=== PATIENT | male | born 1960 | race Caucasian/White ===

== ENCOUNTER 2018-03-18 11:16 | Day surgery (SDC) | payer OTHER ==
[2018-03-18] MEDS ORDERED: PROPOFOL 20 ML (12:31)
[2018-03-18] MEDS ORDERED: LIDOCAINE 2% (SDV) 5 ML INJ ×2 (12:32→13:05)
[2018-03-18] MEDS ORDERED: CEFAZOLIN 1 GM INJ (12:32)
[2018-03-18] MEDS ORDERED: ROPIVACAINE 0.5 % 30 ML VIAL (12:48)
[2018-03-18] MEDS ORDERED: BUPIVACAINE 0.5% (SDV) 30 ML INJ (12:52)
[2018-03-18] MEDS ORDERED: BUPIVACAINE 0.25% (MPF) 30 ML INJ (13:05)
[2018-03-18] MEDS ORDERED: MIDAZOLAM 1 MG/ML 2 ML INJ (13:10)
[2018-03-18] MEDS ORDERED: ONDANSETRON 4 MG INJ (13:11)
[2018-03-18] MEDS ORDERED: DEXAMETHASONE 4 MG/ML 1 ML INJ (13:11)
[2018-03-18] MEDS: POLYMYXIN/BACITRACIN 1L IRRIG IRR (13:23)
[2018-03-18] MEDS ORDERED: morphine 2 MG INJ IV (13:30)
[2018-03-18] MEDS ORDERED: KETOROLAC 30 MG INJ IV (16:00)
[2018-03-18] MEDS ORDERED: METOCLOPRAMIDE 10 MG INJ IV (16:00)
[2018-03-18] MEDS ORDERED: HYDROmorphONE 1 MG/5 ML IV SYRINGE IV (16:00)
[2018-03-18] MEDS ORDERED: ONDANSETRON 4 MG INJ IV (16:00)
[2018-03-18] MEDS ORDERED: FENTAnyl 50 MCG/ML VIAL IV (16:00)
[2018-03-18] MEDS: NEOMYC/POLYMYX/BACIT 30 GM OINT (16:01)
== END 2018-03-18 18:20 | disposition home or self-care (01) ==
LOC: SDS 11:16
DX: M65.872 Other synovitis and tenosynovitis, left ankle and foot (principal); E78.5 Hyperlipidemia, unspecified; J45.20 Mild intermittent asthma, uncomplicated
CPT/HCPCS: 27899; 82306